=== PATIENT | male | born 1965 | race Caucasian/White ===

== ENCOUNTER 2016-08-29 10:49 | Inpatient (IN) | payer OTHER ==
[~2016-08-29] VITALS: Ht 182.9 cm; Wt 108.5 kg
[2016-08-29 10:58] VITALS: BP 132/79; PULSE 122; RESP 20; O2SAT 96
[2016-08-29] MEDS ORDERED: 0.9% Sodium Chloride 1,000 ML IV ONE (11:13)
--- NOTE | 2016-08-29 11:13 | ED.REPORT ---
HPI-Abd Pain M 40 and Over Date of Service Aug 29, 2016 ED Provider: The patient is a 51 year old male with history of hyperlipidemia and newly diagnosed diabetes mellitus who presents to the emergency department complaining of abdominal pain that began a few days ago. The patient was diagnosed with a UTI 10 days ago and sent home with 10 days of ciprofloxacin. He has 1 dose left. In the last few days he has also experienced nausea, vomiting, and chills. He denies fever, dysuria, hematuria or flank pain. He is an everyday smoker but is trying to quit. Nursing Notes Stated Complaint: ABDOMINAL PAIN/VOMITITNG Chief Complaint: Male Abdominal Pain Nursing Notes Reviewed: Yes Allergies: Coded Allergies: Penicillins (Verified Allergy, Mild, 08/29/16) General Time Seen by MD: 11:12 Chief Complaint Abdominal pain Hx Obtained From: Patient Arrived By: Walk-in Sudden in Onset?: No Onset Occurred: 3 days ago Symptom Duration: Since onset Progression since Onset: Constant, Gradually worsening Location: : DiffuseNo: Flank left, Flank right Quality: Painful Severity: Current: Mild Severity: Maximum: Moderate Recent Healthcare: No recent hospitalization, Recent doctor visit Similar Sx Previous: No Past Medical History Past Medical History Diabetes mellitus Hyperlipidemia Family History Noncontributory Smoking History Current Every Day Smoker Social History Other Social History: Good social support, Local resident Ambulatory Status Independent Review of Systems Constitutional: Reports: Chills, Denies: Fever GI: Reports: Abdominal pain, Nausea, Vomiting, Denies: Diarrhea Male: Denies Dysuria, Denies Flank pain, Denies Hematuria Complete sys rev & neg: except as marked. Physical Exam Initial Vital Signs Vital Signs (First) Date Time Temp Pulse Resp B/P Pulse Ox O2 Delivery O2 Flow Rate FiO2 08/29/16 10:58 36.9 122 20 132/79 96 Initial VS: Reviewed Head / Eyes: Atraumatic, Normocephalic, PERRL ENT: Mucous membranes moist, Conjunctiva normal, No scleral icterus Neck: Supple, Non-tender, Full range of motion Lymphatic: No lymphadenopathy Extremities: Vascular intact, Neuro intact, No swelling, No tenderness Skin: Warm, Dry, No cyanosis Neurologic: Alert, Oriented, Nonfocal Psychiatric: Mood/affect normal, Behavior normal, Normal thought content General/Constitutional: Awake, Alert Respiratory / Chest: Atraumatic, Breath sounds NL, Breath sounds = bilat, No respiratory distress, No rales, No rhonchi, No wheezing Cardiovascular: Heart rate NL, Regular rhythm, Heart sounds NL, Peripheral circulation NL Abdomen: Soft, No guarding, No rebound, BS normoactive, No distention, No hernia, No palpable mass, No pulsatile mass Lower quadrant abdominal tenderness, left greater than right. Back: Inspection NL, Non-tender, No CVA tenderness Interpretation & Diagnostics Lab Results Interpretation Result Diagram: 08/29/16 1125 08/29/16 1125 Test 08/29/16 11:25 08/29/16 11:30 White Blood Count 13.5th/mm3 (3.8-10.1) Red Blood Count 4.64mil/mm3 (4.40-5.80) Hemoglobin 14.7g/dL (13.8-17.2) Hematocrit 41.6% (41.0-50.0) Mean Corpuscular Volume 89.7fL (81-100) Mean Corpuscular Hemoglobin 31.7pg (27.0-35.0) Mean Corpuscular Hemoglobin Concent 35.3% (32.0-37.0) Red Cell Distribution Width 12.2% (12.3-15.4) Platelet Count 201bil/L (150-400) Neutrophils (%) (Auto) 93.9% (40-74) Lymphocytes (%) (Auto) 2.8% (14-46) Monocytes (%) (Auto) 2.8% (4-12) Eosinophils (%) (Auto) 0.1% (0-5) Basophils (%) (Auto) 0.1% (0-3) Sodium Level 138mEq/L (134-144) Potassium Level 3.6mEq/L (3.5-5.2) Chloride Level 103mEq/L (97-108) Carbon Dioxide Level 19mmol/L (18-29) Blood Urea Nitrogen 15mg/dL (6-24) Creatinine 0.88mg/dL (0.76-1.27) Estimat Glomerular Filtration Rate 96mL/min (>59) Glucose Level 171mg/dL (60-99) Lactic Acid Level 1.7mmol/L (0.4-2.0) Calcium Level 8.9mg/dL (8.5-10.1) Magnesium Level 1.5mg/dL (1.6-2.6) Total Bilirubin 0.8mg/dL (0.0-1.2) Aspartate Amino Transf (AST/SGOT) 24U/L (0-50) Alanine Aminotransferase (ALT/SGPT) 25U/L (0-44) Alkaline Phosphatase 80U/L (25-150) Total Protein 6.5g/dL (6.4-8.4) Albumin 3.7g/dL (3.4-5.0) Lipase 28U/L (13-60) Urine Color Yellow (YELLOW) Urine Appearance Clear (CLEAR,HAZY) Urine pH 5.0 (5.0-8.0) Urine Specific [place] 1.010 (1.003-1.035) Urine Protein Negativemg/dL (NEG,TRACE) Urine Glucose (UA) Negativemg/dL (NEGATIVE) Urine Ketones Tracemg/dL (NEGATIVE) Urine Occult Blood Negative (NEGATIVE) Urine Nitrite Negative (NEGATIVE) Urine Bilirubin Negative (NEGATIVE) Urine Urobilinogen Normalmg/dL (NORMAL) Urine Leukocyte Esterase Negative (NEGATIVE) Urine RBC 0-2/hpf (0-2) Urine WBC 0-5/hpf (0-5) Urine Epithelial Cells Few/hpf (NONE-MOD) Urine Crystals None seen (NONE SEEN) Urine Bacteria None/hpf (NONE-FEW) Urine Hyaline Casts None/lpf (NONE) Urine Granular Casts None seen (NONE SEEN) Urine Waxy Casts None seen (NONE SEEN) Urine Red Blood Cell Casts None seen (NONE SEEN) Urine White Blood Cell Casts None seen (NONE SEEN) Urine Mucus None seen (None Seen) Urine Trichomonas None seen (NONE SEEN) Urine Yeast None (NONE SEEN) Urinalysis Comment None Urine Culture Reflexed Not indicated ECG Interpretation ECG Interpretation: Sinus tachycardia with a rate of 113 Time: 11:45 Interpreted by: ED physician CT Abd / Pelvis Interpretation IMPRESSION: 1. Acute mid sigmoid colon diverticulitis, with associated bowel perforation. No abscess formation currently. 2. Left L5 pars defect, as well as moderate L5-S1 disc degeneration. Findings discussed with Dr. Lehman on 1236 hours on August 29, 2016. Dictated by: Mick Mccollum M.D. on 08/29/2016 at 12:36 Study type: Abdominal CT IV contrast Interpretation / Wet Read by: Interpret - Radiologist, Discussed w radiologist Re-Eval/Medical Decision Source of Hx: Old records Time of Eval: 11:23 Re-Evaluation/Progress Note: Smoking cessation provided. Time of Eval: 12:43 Re-Evaluation/Progress Note: Rechecked the patient. Discussed plan for admission. All questions were addressed. Consultation : Referral / Consult Name: Geovanni Valencia MD Consulted With: Surgeon Call Returned at: 12:35 Thermoplastic Technician: Will see patient, Agrees with eval, Agrees with plan, Accepts admit Counseled Regarding: Diagnosis, Lab results, Need for admission Discharge & Departure Primary Impression: Perforation of sigmoid colon due to diverticulitis Disposition: ADMITTED TO HOSPITAL Vital Signs - All Vital Signs Date Time Temp Pulse Resp B/P Pulse Ox O2 Delivery O2 Flow Rate FiO2 08/29/16 10:58 36.9 122 20 132/79 96 )( All Prior VS Reviewed: Yes Condition: Stable Scribe Attestation Portions of this note were transcribed by Sudha Villeda. I, Dr. Adeel Lehman personally performed the history, physical exam and medical decision-making; I reviewed and confirmed the accuracy of the information in the transcribed note. Signed by: Henrry Pedro, 08/29/2015 and 1250. Adeel Lehman MD Aug 29, 2016 11:13 Sudha Villeda Aug 29, 2016 11:19
[2016-08-29 11:42] LABS: BASOPHILS % (AUTO) 0.1 % (0-3); EOSINOPHILS % (AUTO) 0.1 % (0-5); MONOCYTES % (AUTO) 2.8 % (4-12); Mean Corpuscular Hemoglobin 31.7 pg (27.0-35.0); Mean Corpuscular Volume 89.7 fL (81-100); NEUTROPHILS % (AUTO) 93.9 % (40-74); Platelet Count 201 bil/L (150-400)
[2016-08-29 12:02] LABS: APPEARANCE,URINE CLEAR (CLEAR,HAZY); COLOR,URINE YELLOW (YELLOW)
[2016-08-29 12:03] LABS: OCCULT BLOOD,URINE NEGATIVE (NEGATIVE); UROBILINOGEN,URINE NORMAL (NORMAL)
[2016-08-29 12:07] LABS: Magnesium 1.5 mg/dL (1.6-2.6)
--- NOTE | 2016-08-29 12:38 | DRSVH ---
PROCEDURE: CT ABDOMEN AND PELVIS WITH CONTRAST ([id number]) INDICATIONS: 51 year-old male with lower abdominal pain, being treated for bladder infection. TECHNIQUE: After the administration of intravenous contrast, 5 mm thick sections acquired from the diaphragm to the symphysis. 5 mm coronal and sagittal reformats were acquired. For radiation dose reduction, the following was used: automated exposure control, adjustment of mA and/or kV according to patient siz e. COMPARISON: None. FINDINGS: Image quality: Excellent. ABDOMEN: Lung bases: Lung bases are clear. Heart size is normal. Solid organs: Liver and spleen are normal in size and enhancement. Gallbladder wall thickness is no rmal. Biliary system is non dilated. Pancreas enhances normally. No adrenal nodules. Kidneys demo nstrate normal size and enhancement, without hydronephrosis. Peritoneum and bowel: Bowel loops demonstrate normal caliber. There is localized sigmoid colon wall thickening with significant inflammatory fat stranding, along with adjacent pockets of extraluminal air best seen on coronal image 33. Several nearby sigmoid colon diverticula are present. The appendix is normal in caliber. There is trace free pelvic fluid. Nodes and vessels: No retroperitoneal or mesenteric adenopathy by size criteria. Aorta and inferior vena cava are normal in size, with mild aortic atherosclerosis. Miscellaneous: No ventral hernias. PELVIS: Genitourinary: Bladder wall thickness is normal. Miscellaneous: No inguinal hernias or adenopathy. Bones: No suspicious bony lesions. No vertebral body compression fractures. There is moderate L5-S1 disc degeneration, as well as the lateral left L5 pars defect. IMPRESSION: 1. Acute mid sigmoid colon diverticulitis, with associated bowel perforation. No abscess formation cu rrently. 2. Left L5 pars defect, as well as moderate L5-S1 disc degeneration. Findings discussed with Dr. Lehman on 1236 hours on August 29, 2016. Dictated by: Mick Mccollum M.D. on 08/29/2016 at 12:36 Approved by: Mick Mccollum M.D. on 08/29/2016 at 12:36
[2016-08-29] MEDS ORDERED: Alum-Mag Hydrox-Simeth 30 mL Suspension PO PRN (12:45)
[2016-08-29] MEDS ORDERED: levoFLOXacin Inj 750 MG in IV Premix 1 EACH IV ONE (12:45)
[2016-08-29] MEDS ORDERED: Acetaminophen IV 1,000 MG in IV Premix 1 EACH IV PRN (12:45)
[2016-08-29] MEDS ORDERED: HYDROmorphone 1 mg/mL Inj IVPUSH PRN (12:45)
[2016-08-29] MEDS ORDERED: metroNIDAZOLE Inj 500 MG in IV Premix 1 EACH IV ONE (12:45)
[2016-08-29] MEDS ORDERED: Ondansetron 2 mg/mL 2 mL Inj IVPUSH PRN (12:45)
[2016-08-29] MEDS: 0.9% Sodium Chloride 1,000 ML IV SCH ×2 (13:07→21:59)
[2016-08-29 13:33] VITALS: BP 104/63; PULSE 95; RESP 22; O2SAT 94
[2016-08-29] MEDS ORDERED: DOCU-41 PO (14:12)
[2016-08-29] MEDS ORDERED: SIMV80TA4 PO (14:12)
[2016-08-29] MEDS ORDERED: NPR500T PO (14:12)
[2016-08-29] MEDS ORDERED: OMEP20CA11 PO (14:12)
[2016-08-29] MEDS ORDERED: METF850T2 PO (14:12)
[2016-08-29 14:42] VITALS: BP 109/72; PULSE 91; RESP 16; O2SAT 96
--- NOTE | 2016-08-29 15:00 | NUR ---
Admit Pt arrived on the unit at 1429. He arrived via gurney with ER staff, he was able to stand and transfer himself to the bed. His weight was obtained and vital signs were checked. Oxygen sats stable on RA, denies SOB. Reports pain is intermittent and is presently "2/10" in his lower abdomen. IV fluids infusing at 100ml/hr. Skin is intact. Alert and oriented. He was oriented to his room, bed, call light, and how to use the telephone in his room.
--- NOTE | 2016-08-29 18:11 | NUR ---
Family Contact information [facility]- [place]- [place]-
[2016-08-29 21:00] VITALS: BP 94/59; PULSE 72; RESP 18; O2SAT 96
[2016-08-29] MEDS: metroNIDAZOLE Inj 500 MG in IV Premix 1 EACH IV SCH (21:59)
--- NOTE | 2016-08-29 22:25 | HP ---
[address] [address] HISTORY AND PHYSICAL PATIENT: SHERIF MONTOYA : 1965 MR#: [id number] ADMIT: 08/29/2016 JOB ID: [id number] CHIEF COMPLAINT: Diverticulitis. HISTORY OF PRESENT ILLNESS: The patient is a 51-year-old male who presented to the emergency department today due to lower abdominal pain. This dates back to around giving time when he developed lower abdominal discomfort. The patient also reported having a right groin mass and patient had undergone a CT scan workup that did not show an inguinal hernia except for some muscle tissue. The patient continued to have lower abdominal pain two weeks ago which was severe and the patient could not get up. The patient was found to have sugar in his urine and hyperglycemia and also found to have a UTI and was subsequently started on a 10-day course of p.o. antibiotics. However, the patient's symptoms did not improve. The patient reports having continued lower abdominal pain and sweats and chills today. This prompted a visit to the emergency department today and the patient underwent a CT scan that showed mid sigmoid diverticulitis with possible microperforation. The patient does report having a colonoscopy approximately three years ago and he had several polyps. This is the first time he has ever been hospitalized due to diverticulitis. He is a smoker. PAST MEDICAL HISTORY: Diabetes, elevated cholesterol, vasectomy. MEDICATIONS: 1. Metformin. 2. Omeprazole. 3. Simvastatin. ALLERGIES: PENICILLIN. SOCIAL HISTORY: Patient has a girlfriend. 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 He has a son and a daughter. He lives in [place]. Smoker. FAMILY HISTORY: Positive for diabetes and heart disease. REVIEW OF SYSTEMS: Positive for the lower abdominal pain for about a month and sweats and chills. All other systems reviewed were negative. PHYSICAL EXAMINATION: The patient is currently comfortable in the hospital bed in no acute distress. His BMI is 32.5. His temperature is 36.8, blood pressure 109/72, pulse is 91, respirations 16. Head is normocephalic, atraumatic. There is no scleral icterus. Neck is supple. Heart is in regular rate. Lungs are clear. Abdomen is slightly obese and protuberant and it is tender in the mid lower abdomen and it does extend bilaterally with mild tenderness. There is no rigidity. There is no abdominal wall erythema. Extremities show no clubbing and no cyanosis. Neurologically, the patient is awake and alert and answers appropriately. LABORATORY EXAMINATION: Today showed a white blood count of 13.5 and hematocrit of 41.6, sodium is 138, potassium 3.6, creatinine 0.88, lipase of 28. His CT scan of the abdomen and pelvis showed acute mid sigmoid diverticulitis with some pockets of extraluminal air. ASSESSMENT: This is a 51-year-old male with acute sigmoid diverticulitis with possible microperforation. Patient is clinically stable. He has been started on IV antibiotics. The natural course of diverticulitis and the treatment was explained to the patient and his girlfriend. The patient has consented to be part of the DEBUT study by the [facility]. Once the patient's abdominal pain improves, he will be advanced on a diet and he will need an outpatient colonoscopy in approximately 1-2 months after discharge. The outpatient colonoscopy can be done at [place]. [facility]
[2016-08-29] MEDS: Meropenem Inj 1,000 MG in IV Premix 1 EACH IV SCH (23:45)
[2016-08-30] VITALS (9 sets, daily range): BP systolic 92–115; BP diastolic 48–75; PULSE 62–75; RESP 14–16; O2SAT 95–98
--- NOTE | 2016-08-30 00:30 | NUR ---
Blood Pressure BP was trending downward @ 90/58. Usually runs at 130's/high 70's. Pt's legs raised and notified. Ordered 500mL bolus. Bolus was given and fluids were changed to 150/hr. BP retaken still 92/48 Addendum: 08/30/16 at 0131 by MADELIN ALVAREZ RN Dr. Valencia called and ordered another 500mL bolus and some labs to be drawn. consulted with Mirna Calle about Pt Will continue to monitor Addendum: 08/30/16 at 0305 by MADELIN ALVAREZ RN Pt BP trending downward again BP is 90/51 leslie MERCHANT Addendum: 08/30/16 at 0612 by MADELIN ALVAREZ RN Latest BP is 98/65 still waiting on lab results to contact Dr. Valencia
[2016-08-30] MEDS ORDERED: 0.9% Sodium Chloride 500 ML IV ONE (01:00)
[2016-08-30 01:54] LABS: BASOPHILS % (AUTO) 0.2 % (0-3); EOSINOPHILS % (AUTO) 0.2 % (0-5); MONOCYTES % (AUTO) 7.3 % (4-12); Mean Corpuscular Hemoglobin 31.4 pg (27.0-35.0); NEUTROPHILS % (AUTO) 84.9 % (40-74); Platelet Count 165 bil/L (150-400)
[2016-08-30] MEDS: 0.9% Sodium Chloride 1,000 ML IV SCH ×4 (02:01→23:01)
[2016-08-30] MEDS: metroNIDAZOLE Inj 500 MG in IV Premix 1 EACH IV SCH ×2 (07:44→15:49)
[2016-08-30 08:39] LABS: Mean Corpuscular Hemoglobin 31.7 pg (27.0-35.0); Mean Corpuscular Volume 91.8 fL (81-100)
--- NOTE | 2016-08-30 08:39 | PCM.PNSURG ---
Subjective Visit Information: Reason for Visit Perforated Sigmoid Diverticulitis Surgery/Surgery Date Post-Op Day # Date of Admission: Aug 29, 2016 at 13:56 Hospital Day # Subjective: had low BP overnight, denies chest pain or SOB, troponin negative, abd pain "about 10 times better" Objective Objective Awake in bed Abd: obese, soft on R and L side, but filter press tender central low abdomen Vital Sign- Last 8 Hours Date Time Temp Pulse Resp B/P Pulse Ox O2 Delivery O2 Flow Rate FiO2 08/30/16 07:42 36.7 66 14 99/62 95 08/30/16 04:38 36.7 66 16 98/65 96 Room Air 08/30/16 02:21 100/59 08/30/16 01:55 103/65 08/30/16 01:00 36.8 65 14 92/48 95 Room Air Intake and Output- Last 8 Hour 08/30/16 Cumulative From/Thru 07:00 08/29/16 10:58 - 08/30/16 05:55 Intake Total 2147 ml 4003 ml Output Total 600 ml Balance 2147 ml 3403 ml Intake IV Total 2147 ml 4003 ml Output Urine Total 600 ml # Voids 4 8 Result Diagram: 08/30/16 0133 08/29/16 1125 Assessment & Plan Impression Acute diverticulitis with micro-perforation Low BP Problems: Plan Continue IVF and IV abx Ambulate Monitor BP, consider hospitalist consult if persistent low BP today Geovanni Valencia MD Aug 30, 2016 08:39
[2016-08-30] MEDS: Meropenem Inj 1,000 MG in IV Premix 1 EACH IV SCH ×2 (10:24→17:31)
--- NOTE | 2016-08-30 12:36 | NUR ---
Social Work-screening: Data:EMR reviewed. Pt is a 51 y/o male who was admitted on 08/29/16 for perforated sigmoid per H&P. Pt's [place] is [employer] and PCP is other. Pt resides at home where he remains independent with ADls. Pt is on IV abx and has been up ambulating in his room independently. No anticipated discharge needs. SW will continue to follow if needs arise. Assessment:Pt who is independent at baseline. Plan:Pt to discharge home when medically stable via POV. No anticipated discharge needs. SW will continue to follow if needs arise. LINDY Lowe
--- NOTE | 2016-08-30 18:20 | NUR ---
Blood Pressure/Tingling fingers Pt blood pressure 103/66 at 1030 and 115/73 at 1230, but then dropped again at 1700 to 96/49. Dr Valencia aware and gave verbal order to contact him if SBP less than 90. Pt reports tingling fingers in bilateral pinkies. Dr Valencia made aware, no orders received, advised pt get up to ambulate.
[2016-08-31 00:33] VITALS: BP 100/70; PULSE 62; RESP 16; O2SAT 98
[2016-08-31] MEDS: metroNIDAZOLE Inj 500 MG in IV Premix 1 EACH IV SCH ×3 (00:45→16:37)
[2016-08-31] MEDS: Meropenem Inj 1,000 MG in IV Premix 1 EACH IV SCH ×3 (00:45→16:38)
[2016-08-31] MEDS ORDERED: 0.9% Sodium Chloride 100 ML ONE (00:57)
[2016-08-31] MEDS: 0.9% Sodium Chloride 1,000 ML IV SCH ×3 (03:41→16:37)
[2016-08-31 05:00] VITALS: BP 128/84; PULSE 57; RESP 16; O2SAT 98
[2016-08-31 08:07] LABS: BASOPHILS % (AUTO) 0.3 % (0-3); EOSINOPHILS % (AUTO) 2.7 % (0-5); MONOCYTES % (AUTO) 8.1 % (4-12); Mean Corpuscular Hemoglobin 31.5 pg (27.0-35.0); Mean Corpuscular Volume 91.3 fL (81-100); NEUTROPHILS % (AUTO) 70.2 % (40-74); Platelet Count 163 bil/L (150-400)
[2016-08-31] MEDS: Pantoprazole 40 mg ER24 Tablet PO SCH (08:13)
--- NOTE | 2016-08-31 13:44 | PCM.PNSURG ---
Subjective Visit Information: Reason for Visit Perforated Sigmoid Diverticulitis Surgery/Surgery Date Post-Op Day # Date of Admission: Aug 29, 2016 at 13:56 Hospital Day # Subjective: abd feeling better still, passed some stool and flatus, hungry, BP seems to be more normal Objective Objective Awake and standing in room Abd: less tender central abdomen compared to yesterday Intake and Output- Last 8 Hour 08/31/16 Cumulative From/Thru 07:00 08/29/16 10:58 - 08/31/16 06:06 Intake Total 1533 ml 7760 ml Output Total 600 ml Balance 1533 ml 7160 ml Intake Oral 300 ml 1100 ml IV Total 1233 ml 6660 ml Output Urine Total 600 ml # Voids 4 14 Result Diagram: 08/31/16 0755 08/29/16 1125 Assessment & Plan Impression Acute diverticulitis WBC normal today Problems: Plan Advance to full liquid diet Continue IV abx Anticipate d/c home tomorrow with po abx. F/U with own PCP or own surgeon in [place], need outpt colonoscopy in 1-2 months. Geovanni Valencia MD Aug 31, 2016 13:44
[2016-08-31 16:27] VITALS: BP 118/75; PULSE 78; RESP 18; O2SAT 98
--- NOTE | 2016-08-31 18:20 | NUR ---
Mobility/pain/food daren Patient indep with mobility. has occas lower abd cramping not requiring pain medication tolerating a [place] diet, will advance in am per MD.
[2016-08-31 20:50] VITALS: BP 109/70; PULSE 55; RESP 18; O2SAT 100
[2016-09-01] MEDS: metroNIDAZOLE Inj 500 MG in IV Premix 1 EACH IV SCH ×2 (00:36→08:22)
[2016-09-01 01:08] VITALS: BP 157/81; PULSE 54; RESP 18; O2SAT 98
[2016-09-01] MEDS: Meropenem Inj 1,000 MG in IV Premix 1 EACH IV SCH ×2 (01:09→08:22)
--- NOTE | 2016-09-01 05:44 | NUR ---
Activity pt has been ambulating multiple times to the rest room independently. gait steady. No c/o pain. Received ABX per order. Bed is locked, call light within reach. will continue to monitor.
[2016-09-01 05:50] VITALS: BP 94/64; PULSE 40; RESP 18; O2SAT 96
[2016-09-01] MEDS: Pantoprazole 40 mg ER24 Tablet PO SCH (08:21)
[2016-09-01] MEDS ORDERED: HepLOK Flush 100 unit/mL 5 mL Inj IVFLUSH PRN (08:30)
--- NOTE | 2016-09-01 08:37 | PCM.DISURG ---
Surgical Discharge Instruction Date of Service Sep 01, 2016 Dates of Hospitalization Date of Hospital Admission Aug 29, 2016 at 13:56 Providers Admitting Physician: Geovanni Valencia MD Primary Care Physician: Other,Physician Attending Physician: Geovanni Valencia MD Discharge Diagnosis Discharge Diagnosis Acute sigmoid diverticulitis Diet Discharge Diet: Diabetic Activity Discharge Activity-General: No restrictions Dressing and Incisional Care Hygiene: May shower Follow Up Plan Follow Up Plan Rx: levaquin and flagyl x7 d F/U with own PCP or surgeon in [place] Need outpt colonoscopy in 1-2 months Call your provider for: Fever, Chills, Increasing abdominal pain, Vomiting Geovanni Valencia MD Sep 01, 2016 08:37
--- NOTE | 2016-09-01 08:38 | PCM.DISURG ---
Surgical Discharge Instruction Date of Service Sep 01, 2016 Dates of Hospitalization Date of Hospital Admission Aug 29, 2016 at 13:56 Providers Admitting Physician: Geovanni Valencia MD Primary Care Physician: Other,Physician Attending Physician: Geovanni Valencia MD Activity Discharge Activity-General: No restrictions Follow Up Plan Follow Up Plan Rx: levaquin and flagyl x7 d F/U with own PCP or surgeon in [place] Need outpt colonoscopy in 1-2 months Call your provider for: Fever, Chills, Increasing abdominal pain, Vomiting Additional Information Additional Information OK to take home meds Geovanni Valencia MD Sep 01, 2016 08:38
--- NOTE | 2016-09-01 08:56 | PCM.PNSURG ---
Subjective Visit Information: Reason for Visit Perforated Sigmoid Diverticulitis Surgery/Surgery Date Post-Op Day # Date of Admission: Aug 29, 2016 at 13:56 Hospital Day # Subjective: abd pain continuing to improve, had BM, wants to try food Objective Objective Awake, sitting up in chair Abd: less tender central abdomen, no facial wincing anymore Vital Sign- Last 8 Hours Date Time Temp Pulse Resp B/P Pulse Ox O2 Delivery O2 Flow Rate FiO2 09/01/16 05:50 36.5 40 18 94/64 96 Room Air 09/01/16 01:08 36.8 54 18 157/81 98 Room Air Intake and Output- Last 8 Hour 09/01/16 Cumulative From/Thru 07:00 08/29/16 10:58 - 08/31/16 18:17 Intake Total 8320 ml Output Total 1000 ml Balance 7320 ml Intake Oral 1660 ml IV Total 6660 ml Output Urine Total 1000 ml # Voids 14 Result Diagram: 08/31/16 0755 08/29/16 1125 Assessment & Plan Impression Acute diverticulitis Diabetes Occasional low BP (asymptomatic) Problems: Plan Advance diet Discharge home today F/U with own PCP or surgeon in [place] [employer] duty work for 10 d. Rx: levaquin and flagyl for 7 more days Need outpt colonoscopy in 1-2 months Geovanni Valencia MD Sep 01, 2016 08:56
--- NOTE | 2016-09-01 09:06 | NUR ---
Social Work: Discharge Data: Pt is on day 3 of hospitalization. EMR reviewed, d/c orders are in. No further ALUMINUM SIDING MECHANIC or d/c planning needs at this time. ALUMINUM SIDING MECHANIC will continue to follow if needs arise. Assessment: Pt who is independent at baseline. Plan: Pt will d/c home via POV today. No further ALUMINUM SIDING MECHANIC or d/c planning needs at this time. ALUMINUM SIDING MECHANIC will continue to follow if needs arise. LINDY Escobar
[2016-09-01 12:45] VITALS: BP 131/84; PULSE 66; RESP 18
--- NOTE | 2016-09-01 13:08 | NUR ---
Discharge Pt was given discharge instructions and educated as to what the plan was after leaving the hospital. Pt was given prescription for meds and information about when to start. Pt had no complaints of discomfort and was steady on his feet with no signs of weakness or unbalance. Pt was discharged with family after IV medications finished and had no further questions.
--- NOTE | 2016-09-02 11:33 | PCM.DC.SUR ---
Discharge Summary Date of Service: Date of Hospital Admission: Aug 29, 2016 at 13:56 Date of Discharge: 09/01/2016 Diagnosis at Time of Discharge Primary diagnosis: Diverticulitis Other diagnoses: 1. Type II diabetes mellitus 2. Hypercholesterolemia 3. Cigarette smoker Problems: Brief History and Physical: The patient is a 51-year-old male who presented to the emergency department due to lower abdominal pain. This dates back to around Thanksgiving time when he developed lower abdominal discomfort. The patient also reported having a right groin mass and the patient had undergone a CT scan workup that did not show an inguinal hernia except for some muscle tissue. The patient continued to have lower abdominal pain two weeks prior to admission which was severe and the patient could not get up. The patient was found to have sugar in his urine and hyperglycemia and also found to have a UTI and was subsequently started on a 10-day course of p.o. antibiotics. However, the patient's symptoms did not improve. The patient reports having continued lower abdominal pain and sweats and chills on the day of admission. This prompted a visit to the emergency department and the patient underwent a CT scan that showed mid sigmoid diverticulitis with possible microperforation. The patient does report having a colonoscopy approximately three years ago and he had several polyps. This is the first time he has ever been hospitalized due to diverticulitis. He is a smoker. Consultants: None Hospital Course: The patient was admitted and consented to be part of the DEBUT study by the [facility]. Conservative management of IV antibiotics and IV fluids were initiated. The patient's condition and improved significantly by the following morning. The patient had intermittent hypotension throughout his hospitalization that was otherwise asymptomatic. He was normotensive on discharge. He had a bowel movement on his third hospital day. He was stable for discharge on his fourth hospital day at which time he had very little abdominal pain, white blood cell count had normalized, blood pressure was 131/84 , he was tolerating a solid food diet with no nausea or vomiting and he was afebrile. Pathology: None Disposition: The patient was discharged to home on his fourth hospital day. Follow-up Plan: He will follow-up with his primary care physician in [facility] and plan to have a colonoscopy in 1-2 months. Docusate Sodium (Colace) 100 Mg Capsule 100 MG PO QAM PRN PRN For Constipation ( Reported) Metformin (Metformin) 850 Mg Tablet 850 MG PO QPM (Reported) Naproxen (Naproxen) 500 Mg Tab 500 MG PO BID PRN PRN For Pain (Reported) Omeprazole (Omeprazole) 20 Mg Capsule.dr 20 MG PO DAILY (Reported) Simvastatin (Simvastatin) 80 Mg Tablet 40 MG PO QAM (Reported) Shant Fam PA-C Sep 02, 2016 11:33
== END 2016-09-01 13:08 | disposition home or self-care (01) | DRG 392 ==
LOC: SED 10:49 → MOC 13:56
PROVIDERS: ADMIT Surgery; ATTEND Surgery
DX: K57.20 Diverticulitis of large intestine with perforation and abscess without bleeding (principal); E11.9 Type 2 diabetes mellitus without complications; F17.210 Nicotine dependence, cigarettes, uncomplicated; E78.5 Hyperlipidemia, unspecified